=== PATIENT | male | born 1945 | race Caucasian/White ===

== ENCOUNTER 2018-12-01 07:39 | Outpatient (CLI) | payer MEDICARE, BC ==
--- NOTE | 2018-12-01 10:03 | MRI ---
[facility] lumbar spine noncontrast: 12/01/2018 HISTORY: 73-year-old male with M 54.16 lumbar radiculopathy chronic. Low back pain radiating to left lower extremity. COMPARISON: None available FINDINGS: There are multiple bilateral renal cysts of varying sizes, ranging from a few millimeters for the sma ller 1's, up to 3.4 cm for one of the larger 1's at left renal upper pole. There are 5 lumbar type vertebrae. Vertebral body heights are maintained. No major spondylolisthesis. Moderate disc space narrowing at L2-3, L3-4, L4-5, and especially L5-S1. Developmentally small calib er spinal canal is exacerbated by diffuse disc bulges, ligamentum flavum thickening, and facet hypert rophy, at L2-3, L3-4, L4-5, and L5-S1. In addition to diffuse disc bulge, there is also a focal centr al and bilateral paracentral, left greater than right, disc herniation at L5-S1. Slight degenerative retrolisthesis of L4 on L5, and L5 on S1. There is tortuosity of the cauda equina throughout all leve ls inferior to L1, due to the multifocal high-grade central spinal canal stenoses. Conus medullaris t erminates at mid L2 level. Findings by individual levels are as follows: T12-L1: Normal L1-2: Minimal disc bulge. Minimal central stenosis. Mild bilateral neural foraminal stenosis. L2-3: There is severe central spinal canal stenosis with obliteration of CSF signal and severe crowdi ng of cauda equina. Moderate right neural foraminal stenosis. Moderate left neural foraminal stenosis to a lesser degree. L3-4: Extremely severe central spinal canal stenosis with obliteration of CSF signal and severe crowd ing of cauda equina. Moderate bilateral neural foraminal stenosis, left worse than right. L4-5: There is severe central spinal canal stenosis with obliteration of CSF signal and crowding of c auda equina. Moderate to severe right neural foraminal stenosis. Moderate left neural foraminal steno sis. L5-S1: Left lateral recess stenosis. No high-grade central spinal canal stenosis. Moderate to severe bilateral neural foraminal stenosis, right greater than left. IMPRESSION: 1. Developmentally small caliber spinal canal exacerbated by high grade lumbar spondylosis: Multileve l moderate degenerative disc disease and multilevel mild and moderate facet osteoarthrosis. 2. Very severe central spinal canal stenoses at L2-3, L3-4, and L4-5. 3. Multilevel high-grade bilateral neural foraminal stenosis. 4. A large number of bilateral renal cysts
== END 2018-12-01 07:40 | disposition home or self-care (01) ==
LOC: BICMRI 07:39
PROVIDERS: ATTEND Family Medicine
DX: M47.26 Other spondylosis with radiculopathy, lumbar region (principal); M51.16 Intervertebral disc disorders with radiculopathy, lumbar region; M48.061 Spinal stenosis, lumbar region without neurogenic claudication; N28.1 Cyst of kidney, acquired
CPT/HCPCS: 72148